=== PATIENT | male | born 2005 | race Two or more races ===

== ENCOUNTER 2025-03-28 10:48 | Emergency (ER) | payer MEDICAID, SELFPAY ==
[2025-03-28 10:49] VITALS: BMI 37.5
[2025-03-28 10:57] VITALS: BP 150/82; PULSE 72; RESP 17; TEMP 37; O2SAT 98
--- NOTE | 2025-03-28 11:04 | EDNOTE_ITS ---
ED Back Injury Pain RME/HPI General Chief Complaint: Back Pain/Injury Stated Complaint: RIGHT SIDE BACK PAIN FOR 5 DAYS Time Seen by Provider: 03/28/25 10:59 Source: patient, RN notes reviewed and old records reviewed Arrival date/time: 03/28/25 10:48 Mode of arrival: ambulatory Limitations: no limitations RME / HPI RME / HPI Narrative: 19yom presents to ED for 5-day history of right thoracic back pain. No preceding injury or fall however, pain initiated after patient had a day at the beach. Back pain worsens with movement and palpation. No fever, cough, s hortness of breath, chest pain, nausea/vomiting or numbness/tingling reported. Patient has taken ibuprofen intermittently with mild relief. Related Data Previous Rx's ?Medication ?Instructions ?Recorded acetaminophen 500 mg tablet 500 mg PO Q6HR PRN PAIN #3 0 tabs 05/07/17 (Tylenol Extra Strength) ibuprofen 600 mg tablet 600 mg PO Q6HR PRN PAIN #30 tabs 05/07/17 acetaminophen 500 mg tablet 1,000 mg (2 x 500 mg) PO Q 6H PRN 03/28/25 (Tylenol Extra Strength) pain #30 tabs ibuprofen 600 mg tablet 600 mg PO Q6H PRN pain #30 t abs 03/28/25 lidocaine 5 % topical patch 1 patch topical QDAY PRN p ain #15 03/28/25 ea methocarbamol 500 mg tablet 1,000 mg (2 x 500 mg) PO Q 8H PRN 03/28/25 pain #30 tabs Allergies Allergy/AdvReac Type Severity Reaction Status Date / Time No Known Allergies Allergy Verified 03/28/25 10:50 Review of Systems Review of Systems Systems Reviewed: All systems reviewed, normal except as documented Constitutional Constitutional: Denies chills and Denies fever(s) ENT Ears, Nose, Mouth, and Throat: Denies neck pain Cardiovascular Cardiovascular: Denies chest pain and Denies dyspnea Respiratory Respiratory: Denies dyspnea Gastrointestinal Gastrointestinal: Denies abdominal pain, Denies nausea and Denies vomiting Musculoskeletal Musculoskeletal: Denies arthralgias, Reports back pain, Denies neck pain, Denies numbness and Denies tingling Neurologic Neurologic: Denies numbness and Denies tingling Past Medical History Past Medical History GASTROINTESTINAL: Positive Obesity Surgical History OTHER SURGICAL HX: Denies past surgical history Social History SMOKING STATUS: Never smoker SUBSTANCE USE: marijuana ALCOHOL: Never ED Exam General Limitations: Present no limitations General appearance: Present alert and in no apparent distress Head Head exam: Present atraumatic and normocephalic Eye Eye exam: Present normal appearance, PERRL and EOMI ENT ENT exam: Present normal exam and mucous membranes moist Neck Neck exam: Present normal inspection and full ROM Chest Chest inspection: Present normal inspection and symmetric chest wall rise Respiratory Respiratory exam: Present normal lung sounds bilaterally and other (No wheezing, rales or rhonchi); Absent respiratory distress Cardiovascular Cardiovascular exam: Present regular rate and normal rhythm Abdominal Exam Abdominal exam: Present soft; Absent distention, tenderness, guarding or rebound Extremities Exam Extremities exam: Present normal inspection and full ROM Back Exam Back exam: Present paraspinal tenderness (Right thoracic); Absent CVA tenderness (R), CVA tenderness (L) or vertebral tenderness Neurological Exam Neurological exam: Present alert and oriented X3 Psychiatric Psychiatric exam: Present normal affect and normal mood Skin Skin exam: Present warm, dry, intact and normal color Course Quality Measures none Orders Category Date Time Status Acetaminophen Tab [Tylenol ES Tab] Med 03/28/25 11:04 Discontinued 1,000 mg PO X1 ONE CYCLObenzaPRINE [Flexeril] Med 03/28/25 11:04 Discontinued 10 mg PO X1 ONE Ketorolac Inj [Toradol Inj] Med 03/28/25 11:04 Discontinued 30 mg IM X1 ONE Lidocaine 5% Patch Med 03/28/25 11:04 Discontinued 1 patch TOP X1 ONE Vital Signs Vital signs: Vital Signs Temperature 98.6 F 03/28/25 10:57 Pulse Rate 72 03/28/25 10:57 Respiratory Rate 17 03/28/25 10:57 Blood Pressure 150/82 H 03/28/25 10:57 Pulse Oximetry (%) 98 03/28/25 10:57 Oxygen Delivery Method Room Air 03/28/25 10:57 Back Pain / Injury MDM Narrative MDM Narrative:: 19yom presents to ED for 5-day history of right thoracic back pain. No preceding injury or fall however, pain initiated after patient had a day at the beach. Back pain worsens with movement and palpation. No fever, cough, shortness of breath, chest pain, nausea/vomiting or numbness/tingling reported. Patient has taken ibuprofen intermittently with mild relief. Patient reassessed. Back pain improving after medications administered. Patient is well-appearing, vitals are stable, suspect MSK etiology of symptoms. Encouraged rest, NSAID, muscle relaxer, ice/heat application prn. Stable for discharge, RTED precautions given. Patient data External records reviewed:: [facility] previous records (02/28/2024 ED visit for bacterial conjunctivitis) Clinical information provided by:: patient Social determinants that could affect healthcare access:: other (specify) (Poor access to healthcare) Patient has the following chronic illnesses:: Obesity How is presenting disease/condition affected by chronic disease/condition?: exacerbated by Evaluation data The following diagnostics were reviewed and interpreted by me:: other (specify) (None) Lab and/or radiology exams considered but not ordered:: Thoracic spine x-rays: No midline tenderness Interpretation Summary: na Medications / Prescriptions Medications or Prescriptions considered but not ordered:: None Medication administrations:: Medication Administration History Discontinued Medications Acetaminophen (Acetaminophen 500 Mg Tablet) 1,000 mg PO X1 ONE Stop: 03/28/25 11:05 Last Admin: 03/28/25 11:16 Dose: 1,000 mg Documented By: STEVO Cyclobenzaprine HCl (Cyclobenzaprine 5 Mg Tablet) 10 mg PO X1 ONE Stop: 03/28/25 11:05 Last Admin: 03/28/25 11:16 Dose: 10 mg Documented By: STEVO Ketorolac Tromethamine (Ketorolac Inj 30 Mg/Ml Vial) 30 mg IM X1 ONE Stop: 03/28/25 11:05 Last Admin: 03/28/25 11:16 Dose: 30 mg Documented By: STEVO Lidocaine (Lidocaine 5% 1 Patch) 1 patch TOP X1 ONE Stop: 03/28/25 11:05 Last Admin: 03/28/25 11:30 Dose: 1 patch Documented By: Above medications administered in ED Consultations Consultation(s) initiated? (list below): No Diagnosis Differential diagnosis back pain/injury: lumbar radiculopathy, sciatica, renal colic and thoracic back pain Most likely diagnosis given after review of the tests above:: Thoracic strain Admission Indicated Admission indicated?: not indicated Admission Request Was there a request for admission?: No Disposition Plan Disposition Plan: Discharge Discharge Attestation Discharge Attestation: The patient and all family members were given an opportunity to ask questions and understood the discharge instructions. Discharge instructions specifically effects, indications for sooner follow up or return to the emergency department, and the expected course of current diagnosis. Patient condition: Stable Discharge Plan Plan Patient Disposition: HOME (Self Care) Patient condition on transfer: Stable Prescriptions/Referrals Prescriptions/Med Rec: New ibuprofen 600 mg tablet 600 mg PO Q6H PRN (Reason: pain) Qty: 30 0RF methocarbamol 500 mg tablet 1,000 mg PO Q8H PRN (Reason: pain) Qty: 30 0RF acetaminophen [Tylenol Extra Strength] 500 mg tablet 1,000 mg PO Q6H PRN (Reason: pain) Qty: 30 0RF lidocaine 5 % adhesive patch,medicated 1 patch topical QDAY PRN (Reason: pain) Qty: 15 0RF Rx Instructions: leave on most painful area for up to 12 hrs No Action acetaminophen [Tylenol Extra Strength] 500 MG tablet 500 mg PO Q6HR PRN (Reason: PAIN) Qty: 30 0RF ibuprofen 600 MG tablet 600 mg PO Q6HR PRN (Reason: PAIN) Qty: 30 0RF Referrals: Jaquan Velásquez MD [Primary Care Provider, Family Practice] - In 1 week Problem List Clinical Impression: Strain of thoracic back region, Acute back pain Patient/Caregiver Discharge Instructions Education Materials: ED Back Pain (Acute or Chronic) Print Language: Macedonian Stand Alone Forms: Rhoda Award Info., Work/School Release, Patient Portal Info Letter MARCOS/UBALDO Supervising Physician SAMEERA Supervising Physician: Dex
[2025-03-28] MEDS: KETOROLAC INJ 30 MG/ML VIAL IM (11:16)
[2025-03-28] MEDS: ACETAMINOPHEN 500 MG TABLET 1000 MG PO (11:16)
[2025-03-28] MEDS: LIDOCAINE 5% 1 PATCH TOP (11:30)
== END 2025-03-28 12:00 | disposition home or self-care (01) ==
PROVIDERS: Emergency Provider Emergency Medicine; PCP Family Medicine
DX: S29.012A Strain of muscle and tendon of back wall of thorax, initial encounter (principal); X58.XXXA Exposure to other specified factors, initial encounter; Y92.832 Beach as the place of occurrence of the external cause
CPT/HCPCS: 96372; 99283; J1885; J3490; A9270